=== PATIENT | female | born 1990 | race Caucasian/White ===

== ENCOUNTER → 2017-11-12 | Outpatient (CLI) | payer OTHER | END | disposition home or self-care (01) | LOC: C.LABSPEC 13:57 | PROVIDERS: ATTEND Obstetrics & Gynecology | DX: Z34.01 Encounter for supervision of normal first pregnancy, first trimester (principal) ==

== ENCOUNTER → 2017-11-21 | Outpatient (CLI) | payer OTHER ==
[2017-11-21 10:12] LABS: BASO % 0.2 %; BASO ABS # 0.01 K/uL (0-0.2); EOS % 0.6 %; EOS ABS # 0.03 K/uL (0-0.5); HEMATOCRIT 37.1 % (37-47); HEMOGLOBIN 12.7 g/dL (12.0-16.0); IG# 0.01 K/uL (0.00-0.02); LYMPH % 20.8 %; LYMPH ABS # 1.03 K/uL (1.2-3.4); MEAN CELL VOLUME 88.3 fL (80-100); MEAN CORPUSCULAR HEMOGLOBIN 30.2 pg (25-34); MEAN CORPUSCULAR HGB CONC 34.2 g/dl (32-36); MEAN PLATELET VOLUME 9.3 fL (7.4-10.4); MONO % 8.5 %; MONO ABS # 0.42 K/uL (0.11-0.59); NEUT % 69.7 %; NEUT ABS # 3.45 K/uL (1.4-6.5); PLATELET COUNT 188 K/uL (130-400); RED CELL DISTRIBUTION WIDTH CV 13.2 % (11.5-14.5); RED CELL DISTRIBUTION WIDTH SD 42.7 fL (36.4-46.3); WHITE BLOOD COUNT 4.95 K/uL (4.8-10.8)
== END | disposition home or self-care (01) ==
LOC: C.LAB1850 08:59
PROVIDERS: ATTEND Obstetrics & Gynecology
DX: Z34.01 Encounter for supervision of normal first pregnancy, first trimester (principal)

== ENCOUNTER → 2017-11-21 | Outpatient (CLI) | payer OTHER | END | disposition home or self-care (01) | LOC: C.PAPS 12:40 | PROVIDERS: ATTEND Obstetrics & Gynecology | DX: Z34.01 Encounter for supervision of normal first pregnancy, first trimester (principal); Z12.4 Encounter for screening for malignant neoplasm of cervix; R87.616 Satisfactory cervical smear but lacking transformation zone ==

== ENCOUNTER → 2018-01-16 | Outpatient (CLI) | payer OTHER | END | disposition home or self-care (01) | LOC: C.LAB1850 13:44 | PROVIDERS: ATTEND Obstetrics & Gynecology | DX: Z34.02 Encounter for supervision of normal first pregnancy, second trimester (principal) ==

== ENCOUNTER → 2018-01-21 | Outpatient (CLI) | payer OTHER | END | disposition home or self-care (01) | LOC: C.LAB1850 07:08 | PROVIDERS: ATTEND Obstetrics & Gynecology | DX: O28.1 Abnormal biochemical finding on antenatal screening of mother (principal); Z3A.00 Weeks of gestation of pregnancy not specified ==

== ENCOUNTER → 2018-05-22 | Outpatient (CLI) | payer OTHER ==
[2018-05-22 09:36] LABS: HEMOGLOBIN 11.9 g/dL (12.0-16.0); MEAN CELL VOLUME 89.1 fL (80-100); MEAN CORPUSCULAR HEMOGLOBIN 30.3 pg (25-34); PLATELET COUNT 202 K/uL (130-400); RED CELL DISTRIBUTION WIDTH CV 13.7 % (11.5-14.5); RED CELL DISTRIBUTION WIDTH SD 44.6 fL (36.4-46.3); WHITE BLOOD COUNT 9.24 K/uL (4.8-10.8)
[2018-05-22 10:11] LABS: ALT/SGPT 19 U/L (12-78); AST/SGOT 20 U/L (15-37); CREATININE 0.56 mg/dl (0.60-1.20)
== END | disposition home or self-care (01) ==
LOC: C.LAB1850 08:53
PROVIDERS: ATTEND Obstetrics & Gynecology
DX: O16.9 Unspecified maternal hypertension, unspecified trimester (principal); Z3A.00 Weeks of gestation of pregnancy not specified

== ENCOUNTER → 2018-05-25 | Outpatient (CLI) | payer OTHER | END | disposition home or self-care (01) | LOC: C.LAB1850 07:23 | PROVIDERS: ATTEND Obstetrics & Gynecology | DX: O16.9 Unspecified maternal hypertension, unspecified trimester (principal); Z3A.00 Weeks of gestation of pregnancy not specified ==

== ENCOUNTER → 2018-05-26 | Outpatient (CLI) | payer OTHER | END | disposition home or self-care (01) | LOC: C.LABSPEC 15:55 | PROVIDERS: ATTEND Obstetrics & Gynecology | DX: Z34.03 Encounter for supervision of normal first pregnancy, third trimester (principal) ==

== ENCOUNTER 2020-04-25 08:48 | Inpatient (IN) ==
[2020-04-26] MEDS ORDERED: OXYTOCIN 30 UNITS/500 ML BAG IV PRN ×4 (07:56→17:59)
--- NOTE | 2020-04-26 08:19 | History & Physical Report ---
Date of Service April 26, 2020 Assessment & Plan (1) : Will proceed w/ induction of labor with pitocin per protocol. Epidural per request. History of Present Illness Primary Care Provider: NO PCP Tahira is a 29 y/o female EDC 05/02/20; LMP 07/27/19. She comes in for induction today due to a prior 4th degree tear during her previous . External FHT and external uterine monitors used; Category I tracing; minimal FHT variability; positive movement. Had regular appointments with OB. Labs: (04/26/20) Blood type: AB positive Antiody screen: Neg H.7 Hct: 31.5 WBC: 6.57 Plt: 191 Rubella: Immune VDRL/RPR: Neg Gonorrhea: Neg Chlamydia: Neg HIV: Neg HbSAg: Neg GBS Neg Allergies Allergy/AdvReac Type Severity Reaction Status Date / Time Cephalosporins Allergy Mild Rash Verified 04/25/20 12:05 Home Medications Home Medications Medication Instructions Recorded Confirmed Type prenat.vits,morelia,[id number] 1 tab PO DAILY 06/12/18 04/25/20 History [ Vitamin] Patient History Medical History (Updated 11/10/19 @ 09:04 by Alf Schmitz Jr, MD, FACOG) History of chicken pox with 38 completed weeks gestation Surgical History (Updated 09/20/19 @ 11:15 by Basilia Bustos) S/P wisdom tooth extraction Family History (Updated 09/20/19 @ 11:17 by Basilia Bustos) Mother Hypertension Sister Hypertension Father Hypertension Situs inversus Primary ciliary dyskinesia Social History (Updated 09/20/19 @ 10:59 by Basilia Bustos) Preferred Language: Taiwanese Communication Ability: Effective Beliefs That Will Affect Care: None marital status: marital status details: Paul Vanegas (30) [phone] Current Living Situation: Spouse Current Living Situation Comment: lives with spouse, son, dog current occupational status: employed current occupation: [employer] Other Information That Helps Us Care for You: No Feels Safe at Home: Yes Safety Concerns: Feels Safe At This Time Smoking Status: Never smoker Hx Alcohol Use: No Hx Substance Use: No Review of Systems Constitutional: denies fever, chills, sweat, headache Respiratory: denies shortness of breath, difficulty breathing Cardiac: denies chest pain, palpitations, chest pressure Breast: denies breast pain : denies dysuria Physical Exam Physical Exam: General: Alert, oriented. No acute distress. Cardiac: Regular rate and rhythm, no murmurs/rubs/gallops. Respiratory: Clear to auscultation bilaterally a/p, no wheezes/rales/rhonchi. No increased work of breathing. Symmetrical chest rise. No respiratory distress. Abdomen: Gravid; NT Pelvic: Manual OB Exam: + cervical dilation 3 cm, + cervical effacement 50% and + station -2 OB Exam Monitor Tracing: + external FHT monitor used per Dr. Ornelas Lower Extremities: No lower extremity edema or swelling. No deep calf pain. Roxanne's negative bilaterally Results & Data Vital Signs (Past 12 Hours) Vital Signs Temp Pulse Resp BP 04/26/20 07:51 36.9 C 85 20 127/77
[2020-04-26] MEDS: LACTATED RINGER'S 1,000 ML IV PRN ×2 (08:29→13:58)
[2020-04-26 08:30] LABS: Hematocrit (blood only) 31.5 % (37-47); Hemoglobin 10.7 g/dL (12.0-16.0); Mean Corpuscular Hemoglobin 29.8 pg (25-34); Mean Corpuscular Volume 87.7 fL (80-100); Platelet Count 191 K/uL (130-400); RDW Coefficient of Variation 13.9 % (11.5-14.5); RDW Standard Deviation 44.5 fL (36.4-46.3); Red Blood Count 3.59 M/uL (4.2-5.4); White Blood Count 6.57 K/uL (4.8-10.8)
--- NOTE | 2020-04-26 08:49 | History & Physical Report ---
Date of Service April 26, 2020 Assessment & Plan (1) Encounter for supervision of normal in multigravida: Induction with Pitocin patient does wish an epidural at some point will consider rupture of membranes after epidural Admission and Anticipated Discharge Date Admission Date: April 26, 2020 History of Present Illness Primary Care Provider: NO PCP Patient at least 39 weeks gestational age COVID negative strep negative she had requested induction because of a prior fourth degree tear trying to avoid the same issue we discussed this in the office that inducing it 39 to 40 weeks does not have optimal science behind it but made sense for a practical point of view of her potentially a smaller size fetus causing was perineal trauma. We discussed the possibility of episiotomy as well to directly tear away from the rectum and she is amenable to this Allergies Allergy/AdvReac Type Severity Reaction Status Date / Time Cephalosporins Allergy Mild Rash Verified 04/25/20 12:05 Home Medications Home Medications Medication Instructions Recorded Confirmed Type prenat.vits,morelia,[id number] 1 tab PO DAILY 06/12/18 04/25/20 History [ Vitamin] Patient History Medical History (Updated 11/10/19 @ 09:04 by Alf Schmitz Jr, MD, FACOG) History of chicken pox with 38 completed weeks gestation Surgical History (Updated 09/20/19 @ 11:15 by Basilia Bustos) S/P wisdom tooth extraction Family History (Updated 09/20/19 @ 11:17 by Basilia Bustos) Mother Hypertension Sister Hypertension Father Hypertension Situs inversus Primary ciliary dyskinesia Social History (Updated 09/20/19 @ 10:59 by Basilia Bustos) marital status: marital status details: Paul Vanegas (30) [phone] Current Living Situation: Spouse and Family Current Living Situation Comment: lives with spouse, son, dog current occupational status: employed current occupation: [employer] Smoking Status: Never smoker Hx Alcohol Use: No Hx Substance Use: No Physical Exam Constitutional: WD/WN, vitals as above Respiratory: normal respiratory effort, lungs clear to auscultation Cardiovascular: RRR, no murmur, no edema Genitourinary: Manual OB Exam: + cervical dilation 3 cm, + cervical effacement 50% and + station -2 OB Exam Monitor Tracing: + external FHT monitor used Results & Data ([place]) Vital Signs (Past 12 Hours) Vital Signs Temp Pulse Resp BP 04/26/20 07:51 98.4 F 85 20 127/77 Coding Level of Care Code None Diagnoses Encounter for supervision of normal in multigravida Z34.80
--- NOTE | 2020-04-26 12:53 | Anesthesiology Consultation ---
Date of Service April 26, 2020 Assessment & Plan (1) Encounter for pre-operative examination: Chart Review Chart Review: Patient NOT seen in Pre Admission Testing and Acceptable Risk for Labor Epidural Consults Requested none ASA ASA2 Proposed Anesthesia Anesthesia Type: Labor Epidural Risk / Benefits Reviewed With: PT / POA / Parent / Guardian, Accepts Plan and Informed Consent Obtained History Height/Weight Height: 5 ft 6 in Weight: 81.286 kg Allergies Allergy/AdvReac Type Severity Reaction Status Date / Time Cephalosporins Allergy Mild Rash Verified 04/25/20 12:05 Medications Home Medications Medication Instructions Recorded Confirmed Last Taken prenat.vits,moreila,[id number] 1 tab PO DAILY 06/12/18 04/25/20 Unknown [ Vitamin] Active Medications Generic Name Dose Route Start Last Admin Trade Name Freq PRN Reason Stop Dose Admin Lactated Ringer's 1,000 mls @ 125 mls/hr 04/26/20 07:56 04/26/20 08:29 Lr IV 04/28/20 07:55 125 mls/hr .Q8H PRN Administration L&D Protocol Protocol Oxytocin 30 units in 500 mls @ 14 mls/hr 04/26/20 08:43 04/26/20 12:50 Pitocin IV 04/28/20 08:42 0.84 units/hr .Q24H PRN 14 mls/hr Labor Induction/Augmentation Titration Protocol 0.84 UNITS/HR NPO Date Last Intake of Fluids: 04/26/20 Time Last Intake of Fluids: 12:58 Date Last Intake of Solids: 04/26/20 Time Last Intake of Solids: 07:00 Past Medical History Medical History History of chicken pox with 38 completed weeks gestation Exercise / Class Metabolic Activity II 4-5 Yardwork/Stairs/Walk up hill Past Family History Family History Mother Hypertension Sister Hypertension Father Hypertension Situs inversus Primary ciliary dyskinesia Past Surgical History Surgical History S/P wisdom tooth extraction Past Anesthesia History No Hx of Anesthesia Complications and No Family Hx of Anesthesia Complications History of PONV No Hx of PONV Social History Smoking Status: Never smoker Hx Alcohol Use: No Hx Substance Use: No Review of Systems Patient denies history of abnormal bleeding or bleeding disorder. Patient denies active use of anticoagulants other than low dose aspirin. Patient denies numbness, tingling or weakness in lower extremities. Negative for chest pain or shortness of breath. Patient denies active symptoms of GERD. Physical Exam Vital Signs Last Vital Signs Temp 36.5 C 04/26/20 08:31 Pulse 68 04/26/20 12:19 Resp 20 04/26/20 08:31 BP 127/87 04/26/20 12:19 Constitutional not obese (Gravid uterus) ENMT Mouth: no TMJ abnormality and oral opening not small Thyromental Distance: > or= 3.5 Finger Breadths Mallampati Class: I Neck normal visual inspection; neck extension not limited Respiratory normal respiratory effort Auscultation: lungs clear to auscultation bilaterally Cardiovascular Rate/Rhythm: regular rate and regular rhythm Heart Sounds: no murmur Neurologic moves all extremities Motor/Sensory: no sensory deficit Psychiatric Orientation: alert and oriented x 3 Testing Laboratory Results 04/26/20 08:14
[2020-04-26] MEDS ORDERED: fentaNYL citrate 100 MCG/2 ML VIAL ONE (14:04)
[2020-04-26] MEDS ORDERED: BUPIVACAINE 0.25% 30 ML VIAL ONE (14:04)
[2020-04-26] MEDS ORDERED: ePHEDrine sulfate 50 MG/ML AMP ONE (14:04)
[2020-04-26] MEDS ORDERED: fentaNYL 2MCG/ML ROPIV 1.25MG/ML 100 ML BAG EPI ONE (14:05)
[2020-04-26] MEDS ORDERED: ONDANSETRON INJ 2 MG/ML 2 ML VIAL IV PRN (14:08)
[2020-04-26] MEDS ORDERED: fentaNYL 2MCG/ML ROPIV 1.25MG/ML 100 ML BAG EPI PRN (14:08)
[2020-04-26] MEDS ORDERED: ePHEDrine sulfate 50 MG/ML AMP IV PRN (14:08)
[2020-04-26] MEDS ORDERED: NALOXONE HCL 0.4 MG/1 ML VIAL/CARP IV PRN (14:08)
[2020-04-26] MEDS ORDERED: DiphenhydrAMINE HCL 50 MG/ML VIAL IV PRN (14:08)
[2020-04-26] MEDS ORDERED: NALOXONE HCL 1 MG in SODIUM CHLORIDE 0.9% 1000ML 1,000 ML IV PRN (14:08)
--- NOTE | 2020-04-26 17:31 | Delivery Summary ---
Vaginal Delivery Summary Date of Service April 26, 2020 Vaginal Delivery Summary Patient delivered vaginally over a RML episiotomy. This was done as patient had a prior 4th degree tear and was already tearing and asked her if this would be ok. Baby delivered in occiput anterior position. Mouth and nares then suctioned with bulb. No nuchal cord, fluid was clear. Baby delivered with gentle traction, no excess force used. Live vigorous . Cord clamped and cut. Gases obtained and cord blood obtained. Placenta removed with traction. Pitocin started and uterine tone improved. Episiotomy repaired 3-0 vicryl. Rectal exam neg for defects or sutures. Bleeding improved. Sponge and instrument counts correct. EBL= 250cc
[2020-04-26] MEDS ORDERED: HYDROCORTISONE ACETATE 25 MG SUPP PR PRN (17:59)
[2020-04-26] MEDS ORDERED: BENZOCAINE 20% AER SPR 82.5 GM CAN EXT PRN (17:59)
[2020-04-26] MEDS ORDERED: SUPERCREAM 0.870% 15 GM JAR EXT PRN (17:59)
[2020-04-26] MEDS ORDERED: ACETAMINOPHEN 325 MG TAB PO PRN (17:59)
[2020-04-26] MEDS ORDERED: OXYCODONE/ACETAMINOPHEN 5mg/325mg TAB PO PRN (17:59)
[2020-04-26] MEDS ORDERED: bisacodyL 10 MG SUPP PR PRN (17:59)
[2020-04-26] MEDS ORDERED: DIPHTHERIA/TETANUS/PERTUSSIS 0.5 ML SYR/VIAL IM ONE (17:59)
--- NOTE | 2020-04-26 18:02 | Anesthesia Procedure Note ---
Date of Service April 26, 2020 Anesthesia Post Epidural Note Vital Signs Vital Signs: Temp Pulse Resp BP Pulse Ox 36.8 C 68 18 132/66 97 04/26/20 16:50 04/26/20 17:46 04/26/20 16:50 04/26/20 17:46 04/26/20 17:10 Notes Mental Status: alert / awake / arousable and participated in evaluation Nausea / Vomiting: adequately controlled Pain: adequately controlled Airway Patency, RR, SpO2: stable & adequate BP & HR: stable & adequate Hydration State: stable & adequate Neuraxial Anesthesia: was administered and sensory block is resolving Anesthetic Complications: no major complications apparent and Pt Satisfied with anesthetic care Epidural: Removed without complications and With tip intact Notes: Epidural site clean, dry and intact. No signs of edema, erythema or bruising at insertion site. Pt instructed to request anesthesia if she has residual lower extremity numbness or if she develops lower extremity pain or weakness, back pain or headache.
[2020-04-26 18:14] LABS: Base Excess Cord Venous Blood -2.7 mEq/L (-7.7-1.9); Cord Venous Blood HCO3 21 mmol/L (18.4-26.8); Cord Venous Blood PCO2 35 mmHg (30.4-57.2); Cord Venous Blood PO2 39 mmHg (14.1-43.3)
[2020-04-26 18:15] LABS: Base Excess Cord Arterial Bld -3.1 mEq/L (-9-1.8); CO2 Cord Arterial Blood 41 mmHg (39.1-73.5); HCO3 Cord Arterial Blood 22 mmol/L (19.7-28.5); Oxygen Sat Cord Arterial Blood 64.5 % (<60); PO2 Cord Arterial Blood 30 mmHg (4.1-31.7); pH Cord Arterial Blood 7.35 (7.1-7.38)
[2020-04-26] MEDS: IBUPROFEN 600 MG TAB PO PRN (20:28)
[2020-04-26] MEDS: DOCUSATE SODIUM 100 MG CAP PO SCH (20:28)
[2020-04-27] MEDS: IBUPROFEN 600 MG TAB PO PRN ×4 (03:40→19:47)
--- NOTE | 2020-04-27 06:27 | Obstetrical Progress Note ---
Date of Service <Shant Charlton MD - Last Filed: 04/27/20 07:19> April 27, 2020 Assessment & Plan <Shant Charlton MD - Last Filed: 04/27/20 07:19> (1) : PPD#1 Doing well, ambulating well, voiding well, tolerating oral intake. Continue routine care. After discharge will have follow-up in 6 weeks. Subjective <Shant Charlton MD - Last Filed: 04/27/20 07:19> Tahira is a 29 y/o female ; PPD #1 following spontaneous vaginal delivery; doing well this morning; light abdominal cramping & 2/10 pain well managed on analgesics; voiding well; tolerating meals overnight and able to ambulate some; some persistent spotting with improvement this morning. Review of Systems Constitutional: denies fever, chills, sweat, headache Respiratory: denies shortness of breath, difficulty breathing Cardiac: denies chest pain, palpitations, chest pressure Breast: denies breast pain : denies dysuria Physical Exam <Shant Charlton MD - Last Filed: 04/27/20 07:19> General: Alert, oriented. No acute distress. Cardiac: Regular rate and rhythm, no murmurs/rubs/gallops. Respiratory: Clear to auscultation bilaterally a/p, no wheezes/rales/rhonchi. No increased work of breathing. Symmetrical chest rise. No respiratory distress. Abdomen: Soft, nontender, nondistended. Bowel sounds present. Uterus: Uterine fundus firm, palpable 1cm below umbilicus. Lower Extremities: No lower extremity edema or swelling. No deep calf pain. Roxanne's negative bilaterally. Results & Data <Shant Charlton MD - Last Filed: 04/27/20 07:19> Vital Signs (Past 12 Hours) Vital Signs Temp Pulse Pulse Resp BP BP Pulse Ox 04/27/20 04:05 36.5 C 76 18 124/69 99 04/26/20 23:53 36.7 C 78 20 129/71 98 04/26/20 20:30 36.8 C 74 18 127/79 97 04/26/20 20:01 80 130/68 04/26/20 19:47 85 125/59 L 04/26/20 19:31 102 H 147/78 H 04/26/20 19:16 102 H 131/85 04/26/20 19:02 82 122/60 04/26/20 18:47 72 116/70 04/26/20 18:31 77 139/74 <Cari Ornelas MD, FACOG - Last Filed: 04/27/20 07:51> Co-Signing Physician Notes Resident Physician Supervision Note: I was present with Dr. Bran during the history and exam. I discussed the case with the resident and agree with the findings and plan as documented in the note. Any exceptions or clarifications are listed here: [None] Documented By: Cari Ornelas MD, FACOG Resident Activity Tracking <Shant Charlton MD - Last Filed: 04/27/20 07:19> Resident Involvement: Resident Care Provided Care Provided: OB Delivery
[2020-04-27 06:30] LABS: Hematocrit (blood only) 29.7 % (37-47); Hemoglobin 10.1 g/dL (12.0-16.0); Mean Corpuscular Hemoglobin 30.3 pg (25-34); Mean Corpuscular Volume 89.2 fL (80-100); Mean Platelet Volume 10.3 fL (7.4-10.4); Platelet Count 193 K/uL (130-400); RDW Standard Deviation 45.8 fL (36.4-46.3); Red Blood Count 3.33 M/uL (4.2-5.4); White Blood Count 9.18 K/uL (4.8-10.8)
[2020-04-27] MEDS: DOCUSATE SODIUM 100 MG CAP PO SCH ×2 (07:50→19:47)
[2020-04-27] MEDS ORDERED: PRENATAL VITAMIN 1 TAB PO SCH (08:00)
[2020-04-27 12:57] VITALS: TEMP 97.9
[2020-04-27 15:27] VITALS: O2SAT 99
[2020-04-27] MEDS ORDERED: bisacodyL 5 MG TABEC PO SCH (20:00)
[2020-04-27 20:43] VITALS: PULSE 70
[2020-04-27 20:47] VITALS: BP 124/69
== END 2020-04-27 21:42 | disposition home or self-care (01) | DRG 807 ==
LOC: 4S1 04-26 07:42 → 4S2 04-26 20:57